=== PATIENT | male | born 1950 | race Caucasian/White ===

== ENCOUNTER 2025-09-29 06:50 | Observation (INO) ==
[2025-09-18 15:44] LABS: ALT/SGPT 25 U/L (<40); AST/SGOT 25 U/L (<40); Albumin 4.1 gm/dL (3.2-5.2); Albumin/Globulin Ratio 1.5 (1.0-2.3); Alkaline Phosphatase 94 U/L (39-117); Anion Gap 7.0 (8.0-16.0); Bilirubin,Total 1.4 mg/dL (0.1-1.0); Blood Urea Nitrogen 17 mg/dL (8-23); Calcium 9.1 mg/dL (8.6-10.4); Carbon Dioxide 26 mmol/L (22-30); Chloride 107 mmol/L (96-108); Globulin 2.7 gm/dL (2.2-3.7); Glucose 142 mg/dL (70-105); Potassium 4.1 mmol/L (3.3-5.1); Sodium 140 mmol/L (133-145)
[2025-09-18 15:51] LABS: Estimated Average Glucose(eAG) 126 mg/dL; Hemoglobin A1C 6.0 % Hgb (4.0-6.0)
[2025-09-18 15:52] LABS: Basophils # (Auto) 0.04 K/mcL (0.00-0.30); Basophils % (Auto) 0.7 % (0.0-2.0); Eosinophils # (Auto) 0.18 K/mcL (0.00-0.70); Eosinophils % (Auto) 3.1 % (0.0-7.0); Hematocrit 44.0 % (40.1-51.0); Hemoglobin 14.4 g/dL (13.7-17.5); Lymphocytes # (Auto) 1.60 K/mcL (1.50-4.80); Lymphocytes % (Auto) 27.5 % (15.5-49.0); Mean Corpuscular HGB Conc 32.7 g/dL (31.0-36.0); Monocytes # (Auto) 0.52 K/mcL (0.10-0.90); Monocytes % (Auto) 9.0 % (1.0-12.0); Neutrophils % (Auto) 59.5 % (38.0-78.0); Platelet Count 152 K/mcL (140-440); RBC 4.67 M/mcL (4.63-6.08); WBC 5.8 K/mcL (4.5-11.0)
[2025-09-29] MEDS: CELECOXIB 200 MG CAPSULE PO SCH (07:27)
[2025-09-29] MEDS: PREGABALIN 75 MG CAPSULE PO SCH (07:27)
[2025-09-29] MEDS: oxyCODONE 10 MG TAB.ER.12H PO SCH (07:27)
[2025-09-29] MEDS ORDERED: ONDANSETRON 4 MG/2 ML VIAL ONE (08:22)
[2025-09-29] MEDS ORDERED: LIDOCAINE 2% PF 5 ML VIAL ONE (08:22)
[2025-09-29] MEDS ORDERED: DEXAMETHASONE 10 MG/ML VIAL ONE (08:22)
[2025-09-29] MEDS ORDERED: TRANEXAMIC ACID 1,000 MG/10 ML VIAL ONE (08:22)
[2025-09-29] MEDS ORDERED: PROPOFOL 200 MG/20 ML VIAL IV ONE (08:22)
[2025-09-29 08:36] LABS: Bacteria,Urine 0 /hpf (0); Bilirubin,Urine NEGATIVE (Negative); Color,Urine LT. YELLOW; Glucose,Urine (UA) NEGATIVE (Negative); Ketones,Urine NEGATIVE (Negative); Leukocyte Esterase,Urine NEGATIVE /uL (Negative); PH,Urine 6.0 (5.0-9.0); Protein,Urine NEGATIVE (Negative); Specific Gravity,Urine 1.025 (1.000-1.035); Urobilinogen,Urine 0.2 mg/dL
[2025-09-29] MEDS: ceFAZolin 2 GM in DEXTROSE 5% IN WATER 50 ML IV SCH (08:41)
[2025-09-29] MEDS ORDERED: ePHEDrine 50 MG/5 ML SYRINGE (ANEST) IV ONE (09:25)
[2025-09-29] MEDS: VANCOMYCIN 1 GM VIAL TOPICAL SCH (10:43)
[2025-09-29] MEDS ORDERED: IPRATROPIUM/ALBUTEROL 3 ML AMPUL.NEB NEB PRN (10:53)
[2025-09-29] MEDS ORDERED: MEPERIDINE 25 MG/ML VIAL IV PRN (10:53)
[2025-09-29] MEDS ORDERED: LACTATED RINGERS 250 ML IV PRN (10:53)
[2025-09-29] MEDS ORDERED: diphenhydrAMINE 50 MG/ML VIAL IV PRN (10:53)
[2025-09-29] MEDS ORDERED: ONDANSETRON 4 MG/2 ML VIAL IV PRN (10:53)
[2025-09-29] MEDS ORDERED: NALOXONE HCL 0.4 MG/ML VIAL IV PRN (10:53)
[2025-09-29] MEDS: ACETAMINOPHEN 1,000 MG/100 ML BAG IV ONE (11:24)
[2025-09-29] MEDS: fentaNYL 100 MCG/2 ML VIAL IV PRN (11:43)
[2025-09-29] MEDS: METHOCARBAMOL 1,000 MG/10 ML VIAL IV PRN (11:44)
[2025-09-29] MEDS: TRANEXAMIC ACID 1,000 MG/10 ML VIAL IV ONE (11:52)
[2025-09-29] MEDS: HYDROmorphone 0.5 MG/0.5 ML SYRINGE IV PRN (12:01)
[2025-09-29] MEDS: TRANEXAMIC ACID 1,000 MG/10 ML VIAL IV SCH (12:05)
[2025-09-29] MEDS: LACTATED RINGERS 1,000 ML IV SCH (13:50)
[2025-09-29] MEDS: 0.9 % SODIUM CHLORIDE 250 ML IV SCH (13:50)
[2025-09-29] MEDS ORDERED: BENZOCAINE/MENTHOL 1 LOZENGE PO PRN (14:19)
[2025-09-29] MEDS ORDERED: MAGNESIUM HYDROXIDE 30 ML ORAL.SUSP PO PRN (14:19)
[2025-09-29] MEDS ORDERED: FLEETS ADULT 1 DOSE ENEMA PR PRN (14:19)
[2025-09-29] MEDS ORDERED: ONDANSETRON 4 MG ODT TABLET SL PRN (14:19)
[2025-09-29] MEDS ORDERED: METHOCARBAMOL 750 MG TABLET PO PRN (14:19)
[2025-09-29] MEDS ORDERED: POLYETHYLENE GLYCOL 3350 17 GM PACKET PO PRN (14:19)
[2025-09-29] MEDS ORDERED: BISACODYL 10 MG SUPP.RECT PR PRN (14:19)
[2025-09-29] MEDS: 0.9 % SODIUM CHLORIDE 1,000 ML IV SCH (15:03)
[2025-09-29] MEDS: ONDANSETRON 4 MG/2 ML VIAL IV PRN (16:22)
[2025-09-29] MEDS: METOPROLOL SUCCINATE 50 MG TAB.XL.24H PO SCH (21:28)
[2025-09-29] MEDS: ZOLPIDEM 5 MG TABLET PO PRN (21:29)
[2025-09-29] MEDS: LOSARTAN 50 MG TABLET PO SCH (21:29)
[2025-09-29] MEDS: DOCUSATE SODIUM 100 MG CAPSULE PO SCH (21:29)
[2025-09-29] MEDS: ASPIRIN 81 MG TAB.CHEW CHEWED SCH (21:29)
[2025-09-29] MEDS: SENNOSIDES 1 TABLET PO SCH (21:29)
[2025-09-29] MEDS: 0.9 % SODIUM CHLORIDE 10 ML SYRINGE IV SCH (21:30)
[2025-09-30 04:27] LABS: Hematocrit 38.8 % (40.1-51.0); Hemoglobin 12.5 g/dL (13.7-17.5)
[2025-09-30] MEDS ORDERED: ASPIRIN 81 MG TAB.CHEW PO SCH (09:00)
[2025-09-30] MEDS: MAGNESIUM OXIDE 400 MG TABLET PO SCH (09:22)
[2025-09-30 10:37] LABS: POC Blood Urea Nitrogen 26.0 (6-20); POC CO2 22.0 (22-30); POC Calcium, Ionized 1.2 (1.16-1.32); POC Glucose, Random 164.0 (70-105)
[2025-09-30 10:56] LABS: Basophils # (Auto) 0.03 K/mcL (0.00-0.30); Basophils % (Auto) 0.2 % (0.0-2.0); Eosinophils # (Auto) 0.03 K/mcL (0.00-0.70); Eosinophils % (Auto) 0.2 % (0.0-7.0); Hematocrit 39.1 % (40.1-51.0); Hemoglobin 12.9 g/dL (13.7-17.5); Lymphocytes # (Auto) 1.92 K/mcL (1.50-4.80); Lymphocytes % (Auto) 12.8 % (15.5-49.0); Mean Corpuscular HGB Conc 33.0 g/dL (31.0-36.0); Monocytes # (Auto) 1.51 K/mcL (0.10-0.90); Monocytes % (Auto) 10.1 % (1.0-12.0); Neutrophils % (Auto) 76.5 % (38.0-78.0); Platelet Count 150 K/mcL (140-440); RBC 4.15 M/mcL (4.63-6.08); WBC 15.0 K/mcL (4.5-11.0)
[2025-09-30 11:08] LABS: Anion Gap 8.0 (8.0-16.0); Blood Urea Nitrogen 25 mg/dL (8-23); Calcium 8.7 mg/dL (8.6-10.4); Carbon Dioxide 25 mmol/L (22-30); Chloride 103 mmol/L (96-108); Glucose 162 mg/dL (70-105); Potassium 4.0 mmol/L (3.3-5.1); Sodium 136 mmol/L (133-145)
[2025-09-30 11:09] LABS: INR 1.1 (0.9-1.1); Partial Thromboplastin Time 24.7 sec (20.0-37.0); Prothrombin Time 15.0 sec (11.9-14.5)
[2025-09-30] MEDS: ATORVASTATIN 40 MG TABLET PO SCH (13:06)
[2025-09-30 18:12] LABS: HDL Cholesterol 46 mg/dL (>40); LDL Cholesterol,Calculated 38 mg/dL (<100); Triglycerides 74 mg/dL (<150)
[2025-09-30] MEDS: CELECOXIB 200 MG CAPSULE PO ONE (21:13)
[2025-09-30] MEDS: 0.9 % SODIUM CHLORIDE 500 ML IV ONE (21:26)
[2025-10-01] MEDS ORDERED: ACETAMINOPHEN 325 MG TABLET PO PRN (00:51)
[2025-10-01] MEDS ORDERED: LACTATED RINGERS 500 ML IV PRN (00:56)
[2025-10-01] MEDS: LACTATED RINGERS 500 ML IV ONE (01:09)
[2025-10-01 06:17] LABS: Basophils # (Auto) 0.04 K/mcL (0.00-0.30); Basophils % (Auto) 0.4 % (0.0-2.0); Eosinophils # (Auto) 0.14 K/mcL (0.00-0.70); Eosinophils % (Auto) 1.5 % (0.0-7.0); Hematocrit 37.6 % (40.1-51.0); Hemoglobin 12.3 g/dL (13.7-17.5); Lymphocytes # (Auto) 1.73 K/mcL (1.50-4.80); Lymphocytes % (Auto) 18.1 % (15.5-49.0); Mean Corpuscular HGB Conc 32.7 g/dL (31.0-36.0); Monocytes # (Auto) 1.10 K/mcL (0.10-0.90); Monocytes % (Auto) 11.5 % (1.0-12.0); Neutrophils % (Auto) 68.3 % (38.0-78.0); Platelet Count 136 K/mcL (140-440); RBC 3.96 M/mcL (4.63-6.08); WBC 9.6 K/mcL (4.5-11.0)
[2025-10-01 08:02] LABS: ALT/SGPT 14 U/L (<40); AST/SGOT 22 U/L (<40); Albumin 3.4 gm/dL (3.2-5.2); Albumin/Globulin Ratio 1.5 (1.0-2.3); Alkaline Phosphatase 74 U/L (39-117); Anion Gap 5.0 (8.0-16.0); Bilirubin,Direct 0.7 mg/dL (<0.3); Bilirubin,Total 1.6 mg/dL (0.1-1.0); Blood Urea Nitrogen 28 mg/dL (8-23); Calcium 8.4 mg/dL (8.6-10.4); Carbon Dioxide 26 mmol/L (22-30); Chloride 104 mmol/L (96-108); Globulin 2.3 gm/dL (2.2-3.7); Glucose 126 mg/dL (70-105); Phosphorous 3.2 mg/dL (2.5-4.5); Potassium 4.3 mmol/L (3.3-5.1); Sodium 135 mmol/L (133-145); Triglycerides 94 mg/dL (<150); Uric Acid 5.7 mg/dL (2.5-8.0)
== END 2025-10-01 11:05 ==
LOC: MEDSUR 06:50 → SUR 06:50 → MEDSUR 12:24
PROVIDERS: ADMIT Orthopaedic Surgery Orthopaedic Surgery of the Spine; ATTEND Orthopaedic Surgery Orthopaedic Surgery of the Spine